=== PATIENT | female | born 1990 | race Caucasian/White ===

== ENCOUNTER 2023-02-16 14:08 | Outpatient (CLI) | payer OTHER ==
--- NOTE | 2023-02-16 14:46 | SLEEP CARE CONSULTATION ---
Information from patient questionnaire entered by Linda Fitzpatrick. I have reviewed and concur with the information entered by Linda Fitzpatrick. This document represents the service I personally performed and the decisions made by me, Alyssa Lubin ARNP. History of Present Illness Service Date and Time: 02/16/2023 1408 Reason for Visit: New patient Chief Complaint: reports: Snoring Date of Onset: 2YRS Usual bedtime: 9PM Time it takes to fall asleep: 5MINS Snores at night: Yes Observed to quit breathing while asleep: No Sleeps alone due to snoring: Yes Number of times waking at night: 2-3 Reasons for waking at night: reports: Snoring, Bathroom, Other (NOISE, UNKNOWN). denies: Choking, Gasping for air Toss, Turn, or Twitch while sleeping: Yes Recalls having dreams: Yes Usually gets out of bed at: 430AM Feels refreshed in the morning: No Morning headache: Yes (2 days a week on weekends mostly when she sleeps in) Sleepy or fatigued during the day: Yes Ever fallen asleep while driving: No Takes day naps: Yes (4 days a week for about an hour) Dreams during day naps: Yes Prior sleep studies: No Additional HPI information: I had the pleasure of seeing CHANNING CHAN today regarding the possibility of her having a sleep disorder. Her current complaint is snoring. She states her sleeps in another room because of her loud snoring. She is not sure how rested she feels because she gets up early. She will wake headaches if she sleeps more than 8 hours. She states she will occasionally jerk awake for no apparent reason. She denies waking up gasping or choking. She does occasionally wake up with throat a very dry and uses water at bedside to control as needed. 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 Patient is and lives in [place]. Have you smoked in the past 12 months: No Alcohol use: Yes Alcohol amount and frequency: 1-2 GLASSES 1 X WEEK Caffeine use: Yes Caffeine amount and frequency: 2+CUPS DAILY Family History Family history of sleep disordered breathing: Yes Family Hx Sleep Apnea: Father: Snoring Allergies and Home Medications Known drug allergies: No Drug allergies reviewed: Yes Home medication list reviewed: Yes (no daily medications) Review of Systems Weight gain over past 5 years: 45 Cardiovascular: denies: high blood pressure Gastrointestinal: reports: heartburn Neurological: reports: headaches. denies: head trauma Psychiatric: reports: anxiety, depression Ear/Nose/Throat: reports: tonsillectomy, wisdom teeth removed Endocrine: reports: sluggishness. denies: thyroid disease Musculoskeletal: reports: back pain Immunologic: reports: allergies to food or environment (seasonal allergies) Physical Exam Vital signs obtained and entered by: LINDA Bright MA Blood Pressure: 104/62 (LEFT ARM) Cuff size: long Heart Rate: 62 O2 Saturation: 98 Height: 5 ft 3 in Weight: 183 lb 12.8 oz Body Mass Index: 32.5 BMI Classification: Obese Neck circumference: 13.75 Mouth and throat: narrow oropharynx Soft palate: long Hard palate: normal Uvula: normal Uvula visualization: 25% Mallampati Class III Tongue: enlarged in size with teeth [place] on lateral edges Tonsils: absent bilaterally Neck: normal w/o lymphadenopathy or thyromegaly Heart: regular rate and rhythm Lungs: clear bilaterally Impression and Plan 1. Suspected Obstructive Sleep Apnea-Hypopnea Syndrome, as suggested by a history of loud and irregular snoring, morning headache and unrefreshed sleep. Narrow oropharynx and obesity are common predisposing factors for obstructive sleep apnea-hypopnea syndrome. I recommend proceeding to polysomnography to conf irm the diagnosis and to assess severity. If the patient has significant sleep disordered breathing, a manual CPAP titration study will also be performed to find the optimal treatment pressure. I informed the patient of what the sleep studies involve and after some discussion, obtained agreement to proceed. The pathophysiology of obstructive sleep apnea-hypopnea syndrome was discussed with the patient and health risks of cardiovascular and cerebrovascular disease if not treated. Risks of drowsy driving discussed in detail and patient advised to avoid long distance driving and to laborer [employer] at the first sign of drowsiness. Patient agreed to plan. * Schedule polysomnography +- manual CPAP titration study and return in 1-2 weeks after the study to discuss result and initiate therapy. * Avoid long distance driving or driving when feeling sleepy. * Avoid alcohol, sedative and muscle relaxant around bedtime. * Attempt to lose weight. * Review instructions provided by trained office staff on how to prepare for the sleep study. * Return for follow-up after sleep study completed. Counseling Topics: Weight loss health impact Visit Type: In Office Time Spent with Patient (minutes): 30 Provider Statement: I spent 100% of the Face to Face Visit with the patient with greater than 50% spent counseling the patient and coordination of care.
[2023-02-16 14:48] VITALS: BP 104/62
== END 2023-02-16 14:09 | disposition home or self-care (01) ==
LOC: SC 14:08
PROVIDERS: ATTEND Nurse Practitioner Family
DX: R06.83 Snoring (principal); G47.8 Other sleep disorders; R51.9 Headache, unspecified; F32.A Depression, unspecified; E66.9 Obesity, unspecified; Z68.32 Body mass index [BMI] 32.0-32.9, adult
CPT/HCPCS: 99203; 99212

== ENCOUNTER 2023-04-08 20:43 | Outpatient (CLI) | payer OTHER | END 2023-04-08 20:44 | disposition home or self-care (01) | LOC: SC 20:43 | PROVIDERS: ATTEND Nurse Practitioner Family | DX: R06.83 Snoring (principal); G47.8 Other sleep disorders; R51.9 Headache, unspecified; F32.A Depression, unspecified; E66.9 Obesity, unspecified; Z68.32 Body mass index [BMI] 32.0-32.9, adult | CPT/HCPCS: 95810 ==

== ENCOUNTER 2023-04-28 09:31 | Outpatient (CLI) | payer OTHER ==
--- NOTE | 2023-04-28 09:43 | Sleep Patient Instructions ---
Sleep Center Visit Summary - Patient Visit Information Reason for Visit: Sleep Study Followup - Patient Instructions Additional Instructions: Your sleep study today was negative for significant sleep disordered breathing. You were found to have episodes of snoring. There are different ways to control snoring including weight loss, oral devices made by a dentist or surgical options through ENT specialist. You should not use oral devices that do not fit properly because they can affect your bite. You should also check insurance coverage of oral devices for snoring because they may not be cover well. You may obtain a referral to an ENT specialist through your primary provider Follow-up as needed. - Clinic Information Contact: [facility] [address] [place] [id number] [email or web address] T: [phone]
--- NOTE | 2023-04-28 09:45 | SLEEP CARE CONSULTATION ---
Information from patient questionnaire entered by Linda Fitzpatrick. I have reviewed and concur with the information entered by Linda Fitzpatrick. This document represents the service I personally performed and the decisions made by , Alyssa Lubin ARNP. History of Present Illness Service Date and Time: 04/28/2023930 Initial [place] Sleepiness Scale score: 9 (02/16/23) Current [place] Sleepiness Scale score: 11 (04/28/23) Additional HPI information: CHANNING CHAN returns for follow up and results of the recently performed polysomnography. The patient was informed of the following findings: No significant sleep disordered breathing with an average AHI of 3.2 and polo oxygen saturation of 89%. I explained the pathophysiology behind obstructive sleep apnea. Patient does not have sleep apnea and was advised how weight gain could increase the risk of developing sleep apnea in the future. I strongly encouraged the patient to lose weight. Patient has light to loud snoring. Snoring can be reduced by weight loss. Weight loss is best achieved with diet consult. Patient instructed to contact PCP for referral. Snoring can also be treated with an oral appliance from a dentist. Advised to check insurance coverage. In addition, an ENT evaluation can be do to see if other treatment is indicated. Patient counseled not drink alcohol less than 4 hours before bedtime as it can increase snoring and apnea. Patient was cautioned about risks of drowsy driving until sleepiness symptoms resolve. Patient denies drowsy driving. Sleep Study - Results Type of Sleep Study: Polysomnography (COMPLETED ON 04/08/23) Prior sleep studies: No Polysomnography/Home Sleep Study results: IMPRESSION: The quality of the study is good. The patient had normal sleep efficiency. The sleep architecture was normal as well. Respiratory monitoring showed no significant sleep disordered breathing (AHI = 3.2) or hypoxia (polo oxygen saturation of 89%). The few respiratory events occurred mainly during REM sleep. The patient slept mostly supine (supine AHI = 3.7; non-supine = 0.00). Snore was light to loud in intensity. There was no significant periodic leg movement of sleep. Cardiac rhythm was normal sinus rhythm without significant arrhythmia. No abnormal behavior (parasomnia) observed during the night. Allergies and Home Medications Known drug allergies: No Drug allergies reviewed: Yes Home medication list reviewed: Yes (no changes) Allergy and home medication list: Allergies No Known Drug Allergies Allergy (Verified 04/27/23 08:31) Review of Systems Review of systems same as previous: Yes (no changes) Physical Exam Vital signs obtained and entered by: LINDA Bright MA Blood Pressure: 108/60 (LEFT ARM) Cuff size: regular Heart Rate: 53 O2 Saturation: 99 Height: 5 ft 3 in Weight: 189 lb 3.2 oz Body Mass Index: 33.5 BMI Classification: Obese Impression and Plan 1. Snoring but no significant sleep disordered breathing. Patient advised that often weight loss will reduce snoring as well as apnea risk. An oral appliance can also be used for snoring. This would require a dental consultation. Patient cautioned not to use other online appliances as can cause bite issues. Patient is advised to check if insurance will cover. An ENT consult can also be helpful to determine if any other treatment is an option. 2. Obesity, unspecified. Currently patients BMI is 33.5. Obesity increases the risk of apnea, CPAP pressure requirements and overall health risks especially cardiovascular and diabetes. Thus patient is advised to lose weight. * Attempt to lose weight * Avoid alcohol consumption near bedtime * The patient is cautioned about driving until sleepiness is completely resolved. * Return as needed for follow up. Counseling Topics: Weight loss health impact Visit Type: In Office Time Spent with Patient (minutes): 13 Provider Statement: I spent 100% of the Face to Face Visit with the patient with greater than 50% spent counseling the patient and coordination of care.
[2023-04-28 09:49] VITALS: BP 108/60; O2SAT 99
== END 2023-04-28 09:32 | disposition home or self-care (01) ==
LOC: SC 09:31
PROVIDERS: ATTEND Nurse Practitioner Family
DX: R06.83 Snoring (principal); E66.9 Obesity, unspecified; Z68.33 Body mass index [BMI] 33.0-33.9, adult
CPT/HCPCS: 99212